=== PATIENT | female | born 1955 | race Two or more races ===

== ENCOUNTER 2016-08-28 09:01 | Inpatient (IN) | payer OTHER ==
[~2016-08-28] VITALS: Ht 170.2 cm; Wt 105.3 kg
[~2016-08-28 09:01] MED LIST: ASPI-496 PO; BACITRACIN 50,000 UNIT ONE; BUPIVACAINE/PF 0.25% ONE; BUPIVACAINE/PF-EPI 0.5% 1:200K ONE; GABA300C10 PO; HYDR-3241 PO; LISI-170 PO; THROMBIN 5,000 UNIT VIAL TP ONE
[2016-08-28] MEDS ORDERED: LACTATED RINGERS 1,000 ML IV SCH (09:43)
[2016-08-28 10:10] VITALS: BP 132/82
[2016-08-28] MEDS ORDERED: HYDROmorphone 1 MG/ML, 1ML IV PRN (10:30)
[2016-08-28] MEDS ORDERED: OXYcodone 5 MG/5 ML ORAL.SOL UDC PO PRN (10:30)
[2016-08-28] MEDS ORDERED: hydrALAzine 20 MG/ML, 1ML IV PRN (10:30)
[2016-08-28] MEDS ORDERED: ALBUTEROL SULFATE 2.5 MG/3 ML NPPB PRN (10:30)
[2016-08-28] MEDS ORDERED: FENTANYL PF 100 MCG/2ML IV PRN (10:30)
[2016-08-28] MEDS ORDERED: ONDANSETRON 2MG/ML, 2ML IVPush PRN ×2 (10:30→16:30)
[2016-08-28] MEDS ORDERED: PROMETHAZINE 25 MG/ML, 1ML IV PRN (10:30)
[2016-08-28] MEDS ORDERED: LABETALOL 5MG/ML, 20ML IV PRN (10:30)
[2016-08-28] MEDS ORDERED: METOPROLOL 1 MG/ML, 5ML IV PRN (10:30)
[2016-08-28] MEDS ORDERED: EPHEDRINE 50 MG/ML, 1ML IVPush PRN (10:30)
[2016-08-28] MEDS ORDERED: MIDAZOLAM 1 MG/ML, 2ML ONE (11:27)
[2016-08-28] MEDS ORDERED: FENTANYL PF 250 MCG/5ML ONE (11:27)
[2016-08-28] MEDS ORDERED: HYDROmorphone 1 MG/ML, 1ML ONE (11:27)
[2016-08-28] MEDS ORDERED: GABAPENTIN 300 MG CAPSULE ONE ×2 (12:42→12:50)
[2016-08-28] MEDS ORDERED: ACETAMINOPHEN 500 MG TABLET ONE ×2 (12:42→12:50)
[2016-08-28] MEDS ORDERED: METOCLOPRAMIDE 5 MG/ML, 2ML ONE (13:06)
[2016-08-28] MEDS ORDERED: NEOSTIGMINE 1 MG/ML, 10ML ONE (13:06)
[2016-08-28] MEDS ORDERED: PROPOFOL 10 MG/ML, 50ML ONE (13:06)
[2016-08-28] MEDS ORDERED: CEFAZOLIN 1,000 MG ONE (13:06)
[2016-08-28] MEDS ORDERED: PROPOFOL 10 MG/ML, 20ML ONE (13:06)
[2016-08-28] MEDS ORDERED: ONDANSETRON 2MG/ML, 2ML ONE (13:06)
[2016-08-28] MEDS ORDERED: SUCCINYLCHOLINE 20 MG/ML, 10ML ONE (13:06)
[2016-08-28] MEDS ORDERED: GLYCOPYRROLATE 0.2MG/1ML ONE (13:06)
[2016-08-28] MEDS ORDERED: DEXAMETHASONE 4 MG/ML, 1ML ONE (13:06)
[2016-08-28] MEDS ORDERED: FENTANYL PF 100 MCG/2ML EPIDPUSH ONE (13:52)
[2016-08-28] MEDS ORDERED: FENTANYL PF 100 MCG/2ML ONE (14:13)
[2016-08-28] MEDS ORDERED: PHARMACY MAY ADJ FOR RENAL FX MC PRN (16:30)
[2016-08-28] MEDS ORDERED: METHOCARBAMOL 750 MG TABLET PO PRN (16:30)
[2016-08-28] MEDS ORDERED: PROMETHAZINE 25 MG/ML, 1ML IM PRN (16:30)
[2016-08-28] MEDS ORDERED: morphine SULFATE 10 MG/ML, 1ML IVPush PRN (16:30)
[2016-08-28] MEDS ORDERED: BISACODYL 10 MG SUPP PR PRN (16:30)
[2016-08-28] MEDS ORDERED: CYCLOBENZAPRINE 10 MG TABLET PO PRN (16:30)
[2016-08-28] MEDS ORDERED: HYDROcodone/APAP 5/325 TABLET PO PRN (16:30)
[2016-08-28] MEDS ORDERED: DIPHENHYDRAMINE 50 MG/ML, 1ML IVPush PRN (16:30)
[2016-08-28] MEDS ORDERED: OXYcodone 5 MG/5 ML ORAL.SOL UDC ONE (16:42)
[2016-08-28] MEDS ORDERED: LACTATED RINGERS 500 ML IVBOLUS PRN (17:00)
[2016-08-28 17:40] VITALS: BP 106/62
[2016-08-28] MEDS: HYDROcodone/APAP 10/325 MG TABLET PO PRN (20:40)
[2016-08-28] MEDS: D5%-0.9% NACL+KCL 20MEQ 1,000 ML IV SCH (20:41)
[2016-08-28] MEDS: SODIUM CHLORIDE FLUSH 10ML SYR IVF SCH (20:48)
[2016-08-28] MEDS: GABAPENTIN 300 MG CAPSULE PO SCH (21:05)
[2016-08-28] MEDS: CEFAZOLIN PMX 1GM/50ML 50 ML IVPB SCH (21:06)
[2016-08-28 21:45] VITALS: BP 109/60
[2016-08-29] VITALS: BP 111/63
[2016-08-29] MEDS: HYDROcodone/APAP 10/325 MG TABLET PO PRN ×2 (01:05→04:04)
[2016-08-29 04:00] VITALS: BP 128/69
[2016-08-29] MEDS: CEFAZOLIN PMX 1GM/50ML 50 ML IVPB SCH (05:19)
[2016-08-29] MEDS: D5%-0.9% NACL+KCL 20MEQ 1,000 ML IV SCH ×2 (06:21→22:00)
[2016-08-29 08:01] VITALS: BP 114/70
[2016-08-29] MEDS: GABAPENTIN 300 MG CAPSULE PO SCH ×3 (09:18→20:28)
[2016-08-29] MEDS: LISINOPRIL 20 MG TABLET PO SCH (09:18)
[2016-08-29] MEDS: SODIUM CHLORIDE FLUSH 10ML SYR IVF SCH ×2 (09:19→20:28)
[2016-08-29 13:48] VITALS: BP 111/68
[2016-08-29] MEDS: OXYcodone/APAP 5/325MG TABLET PO PRN ×2 (15:09→20:28)
[2016-08-29] MEDS: SENNA/DOCUSATE TABLET PO PRN (15:10)
[2016-08-29 18:47] VITALS: BP 90/52
[2016-08-29 20:30] VITALS: BP 113/52
[2016-08-30] MEDS: OXYcodone/APAP 5/325MG TABLET PO PRN ×6 (01:20→22:23)
[2016-08-30 03:36] VITALS: BP 107/65
[2016-08-30] MEDS: D5%-0.9% NACL+KCL 20MEQ 1,000 ML IV SCH (03:56)
[2016-08-30 06:50] VITALS: BP 125/79
[2016-08-30] MEDS: SENNA/DOCUSATE TABLET PO PRN (08:23)
[2016-08-30] MEDS: LISINOPRIL 20 MG TABLET PO SCH (08:25)
[2016-08-30] MEDS: GABAPENTIN 300 MG CAPSULE PO SCH ×3 (08:26→20:35)
[2016-08-30] MEDS: SODIUM CHLORIDE FLUSH 10ML SYR IVF SCH ×2 (10:15→20:40)
[2016-08-30] MEDS ORDERED: OXYC-229 PO (11:24)
[2016-08-30] MEDS ORDERED: CYCL-259 PO (11:25)
[2016-08-30 14:00] VITALS: BP 94/60
[2016-08-30] MEDS: SODIUM CHLORIDE 0.9% 1,000 ML IV SCH (15:30)
[2016-08-30] MEDS: SODIUM CHLORIDE 0.9% 250 ML IV SCH ×2 (15:30→16:00)
[2016-08-30 16:21] LABS: HEMOGLOBIN 10.3 g/dL (11.7-16.4)
[2016-08-30] MEDS ORDERED: D5%-0.9% NACL+KCL 20MEQ 1,000 ML IV SCH (16:30)
[2016-08-30 16:36] LABS: BLOOD UREA NITROGEN 14 mg/dL (7-18)
[2016-08-30 21:07] VITALS: BP 152/86
[2016-08-30 22:04] VITALS: BP 145/70
[2016-08-30 23:01] VITALS: BP 124/62
[2016-08-31 02:41] VITALS: BP 127/76
[2016-08-31] MEDS: OXYcodone/APAP 5/325MG TABLET PO PRN ×3 (03:43→13:03)
[2016-08-31] MEDS: SODIUM CHLORIDE 0.9% 1,000 ML IV SCH (04:20)
[2016-08-31 08:18] VITALS: BP 137/84
[2016-08-31] MEDS: SODIUM CHLORIDE FLUSH 10ML SYR IVF SCH (09:00)
[2016-08-31] MEDS: GABAPENTIN 300 MG CAPSULE PO SCH (09:13)
[2016-08-31] MEDS: LISINOPRIL 20 MG TABLET PO SCH (09:14)
[2016-08-31 12:26] VITALS: BP 151/88
== END 2016-08-31 14:48 | disposition home or self-care (01) | DRG 460 ==
LOC: ORIP 09:01 → EDSTATUS 13:30 → 4NOR 17:41
PROVIDERS: ADMIT Neurological Surgery; ATTEND Neurological Surgery
PROC: 0SG00AJ Fusion of Lumbar Vertebral Joint with Interbody Fusion Device, Posterior Approach, Anterior Column, Open Approach (ICD-10-PCS; principal; 2016-08-31)
PROC: 0SB20ZZ Excision of Lumbar Vertebral Disc, Open Approach (ICD-10-PCS; 2016-08-31)
PROC: 01NB0ZZ Release Lumbar Nerve, Open Approach (ICD-10-PCS; 2016-08-31)
PROC: 4A11X4G Monitoring of Peripheral Nervous Electrical Activity, Intraoperative, External Approach (ICD-10-PCS; 2016-08-31)
DX: M48.06 Spinal stenosis, lumbar region (principal); E66.01 Morbid (severe) obesity due to excess calories; G89.29 Other chronic pain; M51.16 Intervertebral disc disorders with radiculopathy, lumbar region; M43.16 Spondylolisthesis, lumbar region; G43.909 Migraine, unspecified, not intractable, without status migrainosus; I10 Essential (primary) hypertension; Z82.3 Family history of stroke; Z68.37 Body mass index [BMI] 37.0-37.9, adult; Z79.82 Long term (current) use of aspirin; Z79.899 Other long term (current) drug therapy
CPT/HCPCS: 36415; 72100; 80048; 85025; J0690; J1100; J1170; J2250; J2405; J2704; J2710; J3010; J3490; J7120; J0330; J2270; J2765; J3480; J7030; J7050